=== PATIENT | female | born 1950 | race Asian ===

== ENCOUNTER 2016-12-28 07:56 | Outpatient (CLI) | payer BC, OTHER | END 2016-12-28 07:57 | disposition home or self-care (01) | DX: K76.0 Fatty (change of) liver, not elsewhere classified (principal); R74.8 Abnormal levels of other serum enzymes ==

== ENCOUNTER 2017-06-27 08:13 | Outpatient (CLI) | payer OTHER ==
--- NOTE | 2017-06-27 11:36 | DEXA Report ---
DEXA SCAN: 06/27/2017 CLINICAL INDICATION: Postmenopausal. TECHNIQUE: Dual energy x-ray absorptiometry (DXA) was performed on a [employer] system. Regions measured are the AP spine, femoral neck, and, if needed, forearm. COMPARISON: None. In accordance with the International Society for Clinical Densitometry (ISCD) guidelines, data from previous exams may be reanalyzed using current recommendations and techniques. This is done to allow a more accurate basis for comparison with the current study. FINDINGS: The data for the lumbar spine is as follows: REGION BMD (g/cm/cm) T-SCORE Z-SCORE L1 1.189 0.5 1.3 L2 1.179 -0.2 0.6 L3 1.161 -0.3 0.4 L4 1.134 -0.6 0.2 TOTAL 1.163 -0.1 0.6 NOTE: All evaluable vertebrae are used for classification. The data for the hip is as follows: REGION BMD (g/cm/cm) T-SCORE Z-SCORE Neck 0.973 -0.5 0.5 TOTAL 1.115 0.8 1.5 NOTE: The femoral neck or total proximal femur, whichever is lowest, is used for classification. IMPRESSION: THE WHO CLASSIFICATION BASED ON THE INTERNATIONAL REFERENCE STANDARD IS NORMAL. THE FRACTURE RISK IS NOT INCREASED. RECOMMENDATION: Patients with diagnosis of osteoporosis or osteopenia should have regular bone mineral density assessment. For those eligible for Medicare, routine testing is allowed once every 2 years. Testing frequency can be increased for patients who have rapidly progressing disease or for those who are receiving medical therapy to restore bone mass. COMMENT: World Health Organization (WHO) definitions for osteoporosis and osteopenia: NORMAL BMD: T-score at -1.0 or higher, fracture risk is low. OSTEOPENIA BMD: T-score between -1.0 and -2.5, fracture risk is increased. OSTEOPOROSIS BMD: T-score at -2.5 or lower, fracture risk high. National Osteoporosis Foundation recommends: 1. Obtain adequate dietary calcium (at least 1200 mg per day) and vitamin D (400 -800 international units per day). 2. Participate, as appropriate, in regular weightbearing and muscle- strengthening exercise. 3. Avoid tobacco use and reduce alcohol and caffeine intake. 4. For more detailed information see the website at www.NOF.org. MTDD
== END 2017-06-27 08:14 | disposition home or self-care (01) ==
LOC: DI 08:13
PROVIDERS: ATTEND Physician Assistant Medical
DX: M89.9 Disorder of bone, unspecified (principal)
CPT/HCPCS: 77080

== ENCOUNTER 2018-08-14 21:06 | Outpatient (CLI) | payer BC ==
--- NOTE | 2018-08-14 22:05 | Ultrasound Report ---
Reason: LEG PAIN,RIGHT Procedure Date: 08/14/2018 Accession Number: [id number] / [id number] Procedure: US - Duplex Ext Veins Right CPT Code: FULL RESULT: EXAM: RIGHT LOWER EXTREMITY VENOUS ULTRASOUND EXAM DATE: 08/14/2018 09:43 PM. CLINICAL HISTORY: LEG PAIN,RIGHT. COMPARISON: None. TECHNIQUE: Real-time sonographic vascular imaging was performed by the bag worker through the lower extremity utilizing both color-flow and Doppler spectral analysis. Multiple claim representative static images were saved for review. FINDINGS: Common Femoral Vein (CFV): Normal. CFV-GSV Junction: Normal. Profunda Femoral Vein (PFV): Normal. Femoral Vein (FV) Prox: Normal. Femoral Vein (FV) Mid: Normal. Femoral Vein (FV) Dist: Normal. Popliteal Vein: Normal. Posterior Tibial Veins: Normal. Peroneal Veins: Normal. Contralateral Side CFV: Normal. Other: None. IMPRESSION: No evidence for deep venous thrombosis. RADIA
== END 2018-08-14 21:07 | disposition home or self-care (01) ==
LOC: DI 21:06
PROVIDERS: ATTEND Family Medicine
DX: M79.604 Pain in right leg (principal)

== ENCOUNTER 2019-08-15 08:48 | Outpatient (CLI) | payer BC ==
--- NOTE | 2019-08-16 12:12 | Ultrasound Report ---
Reason: ELEVATED LFTS Procedure Date: 08/15/2019 Accession Number: [id number] / [id number] Procedure: US - Abdomen Limited CPT Code: FULL RESULT: EXAM: ABDOMEN ULTRASOUND LIMITED, RUQ EXAM DATE: 08/15/2019 09:48 AM. CLINICAL HISTORY: ELEVATED LFTS. COMPARISON: 12/28/2016. TECHNIQUE: Real-time scanning was performed with static images obtained. FINDINGS: Limited by patient scanning characteristics. Liver: Increased both in size and echotexture. 20 cm. Main portal vein flow: Hepatopetal. Gallbladder: Status post cholecystectomy. Biliary System: CBD measures 5 mm. No intrahepatic or extrahepatic ductal dilatation. Free fluid: None. Right kidney: 11.7 cm. IMPRESSION: 1. Hepatomegaly with fatty infiltration of the liver. 2. Status post cholecystectomy. RADIA
== END 2019-08-15 08:49 | disposition home or self-care (01) ==
LOC: DI 08:48
PROVIDERS: ATTEND Internal Medicine
DX: K76.0 Fatty (change of) liver, not elsewhere classified (principal); Z90.49 Acquired absence of other specified parts of digestive tract
CPT/HCPCS: 76705

== ENCOUNTER 2023-05-15 08:00 | Outpatient (CLI) | payer OTHER ==
--- NOTE | 2023-05-15 12:20 | Ultrasound Report ---
LIMITED ULTRASOUND OF RIGHT BREAST: 05/15/2023 CLINICAL: Occasional right breast pain. Comparison is made to exams dated: 05/15/2023 mammogram, 04/20/2015 mammogram, and 08/02/2011 mammogram - [facility]. Color flow and real-time ultrasound of the right breast 5-7 o'clock region were performed. Mcneal scal e images of the real-time examination were reviewed. No significant abnormalities were seen sonographically in the right breast in the region of pain. IMPRESSION: NEGATIVE There is no sonographic evidence of malignancy. No mass in the region of focal pain in the right breast. Exam findings were conveyed to the patient. Exam findings were discussed with the patient. Patient is advised to monitor for significant change. A 1 year screening mammogram is recommended. This exam was interpreted at Station ID: [id number]. Electronically Signed By: Errol Concepcion M.D. slc/:05/15/2023 09:59:10 Ultrasound BI-RADS: 1 Negative BI-RADS CATEGORY: (1) - 1 Mammogram [id number] 1 year screening LATERALITY: (B)
--- NOTE | 2023-05-15 12:20 | Mammography Report ---
BILATERAL DIGITAL DIAGNOSTIC MAMMOGRAM 3D/2D: 05/15/2023 CLINICAL: Intermittent pain in right breast. Due for bilateral imaging. Comparison is made to exams dated: 04/20/2015 mammogram and 08/02/2011 mammogram - [facility]. There are scattered areas of fibroglandular density in both breasts (category b / 25%-50% glandular t issue). No significant masses, calcifications, or other findings are seen in either breast. No mass in the region of focal pain in the right breast. IMPRESSION: INCOMPLETE: NEEDS ADDITIONAL IMAGING EVALUATION No mass in the region of focal pain in the right breast. A targeted ultrasound is recommended and will immediately follow. Based on the Tyrer Cuzick model (a risk assessment model) the patients lifetime risk is 4.2% and her 10 year risk is 2.9%. According to the ACR, ACS, and NCCN guidelines, an annual breast MRI exam opal g with mammogram is recommended if the patients lifetime risk is 20% or greater. This exam was interpreted at Station ID: [id number]. NOTE: For mammograms, a report in lay terms will be sent to the patient. Approximately 15% of breast malignancies will not be visualized mammographically. In the management of a palpable breast mass, a negative mammogram must not discourage biopsy of a clinically suspicious lesion. Electronically Signed By: Errol Concepcion M.D. slc/:05/15/2023 09:57:48 ACR BI-RADS Category 0: Incomplete 3340F PARENCHYMAL PATTERN: (A) - The breast(s) demonstrate(s) scattered fibroglandular densities. BI-RADS CATEGORY: (0) - 0 Ultrasound [id number] Immediate follow-up LATERALITY: (B)
== END 2023-05-15 08:01 | disposition home or self-care (01) ==
LOC: DI 08:00
PROVIDERS: ATTEND Internal Medicine
DX: N64.4 Mastodynia (principal)

== ENCOUNTER 2023-11-05 12:30 | Outpatient (CLI) | payer OTHER ==
--- NOTE | 2023-11-05 16:31 | XRAY Report ---
PROCEDURE: Hand 3 View LT INDICATIONS: ARTHRALGIA TECHNIQUE: 3 views of the hand(s) acquired. COMPARISON: None. FINDINGS: Bones: No fractures or dislocations. Moderate degenerative changes at the first CMC joint. Mild to moderate degenerative changes at the interphalangeal joints. No suspicious bony lesions. Soft tissues: No suspicious soft tissue calcifications or masses. 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 Reviewed by: Errol Concepcion MD on 11/05/2023 4:29 PM PST Approved by: Errol Concepcion MD on 11/05/2023 4:29 PM PST Station ID: [id number]
== END 2023-11-05 12:31 | disposition home or self-care (01) ==
LOC: DI 12:30
PROVIDERS: ATTEND Internal Medicine
DX: M19.042 Primary osteoarthritis, left hand (principal)

== ENCOUNTER 2024-07-16 09:37 | Outpatient (CLI) | payer OTHER ==
--- NOTE | 2024-07-19 08:28 | Ultrasound Report ---
LIMITED ULTRASOUND OF RIGHT BREAST: 07/16/2024 CLINICAL: Focal right breast pain. Comparison is made to exams dated: 07/16/2024 mammogram, 05/15/2023 ultrasound, 05/15/2023 mammogram, a nd 04/20/2015 mammogram - [facility]. Color flow ultrasound of the right breast 12-5 o'clock, and retroareolar regions was performed. Mcneal scale images of the real-time examination were reviewed. No significant abnormalities were seen sonographically in the right breast. IMPRESSION: NEGATIVE There is no sonographic evidence of malignancy. There is no abnormality seen in the right breast to correspond with the palpable abnormality and pain , however, clinical followup is recommended. A 1 year screening mammogram is recommended. This exam was interpreted at Station ID: [id number]. Electronically Signed By: Feliciano vegas/kassie:07/16/2024 20:40:25 letter sent: No_Letter Ultrasound BI-RADS: 1 Negative BI-RADS CATEGORY: (1) - 1 RECOMMENDATION: (ANNUAL) - Recommend routine annual screening mammography. [id number] 1 year screening LATERALITY: (B)
--- NOTE | 2024-07-19 08:28 | Mammography Report ---
BILATERAL DIGITAL DIAGNOSTIC MAMMOGRAM 3D/2D: 07/16/2024 CLINICAL: Palpable right breast lump by physician. Focal right breast pain. Due for bilateral exam. Comparison is made to exams dated: 05/15/2023 mammogram, 04/20/2015 mammogram, and 05/15/2023 ultrasoun d - [facility]. There are scattered areas of fibroglandular density in both breasts (category b / 25%-50% glandular t issue). No significant masses, calcifications, or other findings are seen in either breast. IMPRESSION: INCOMPLETE: NEEDS ADDITIONAL IMAGING EVALUATION There is no abnormality seen in the right breast to correspond with the palpable abnormality and pain , however, ultrasound is recommended. Based on the Tyrer Cuzick model (a risk assessment model) the patient's lifetime risk is 3.9% and her 10 year risk is 2.9%. According to the ACR, ACS, and NCCN guidelines, an annual breast MRI exam opal g with mammogram is recommended if the patient's lifetime risk is 20% or greater. This exam was interpreted at Station ID: [id number]. NOTE: For mammograms, a report in lay terms will be sent to the patient. Approximately 15% of breast malignancies will not be visualized mammographically. In the management of a palpable breast mass, a negative mammogram must not discourage biopsy of a clinically suspicious lesion. Electronically Signed By: Feliciano vegas/kassie:07/16/2024 20:38:57 ACR BI-RADS Category 0: Incomplete 3340F PARENCHYMAL PATTERN: (A) - The breast(s) demonstrate(s) scattered fibroglandular densities. BI-RADS CATEGORY: (0) - 0 Ultrasound [id number] Immediate follow-up LATERALITY: (R)
== END 2024-07-16 09:38 | disposition home or self-care (01) ==
LOC: DI 09:37
PROVIDERS: ATTEND Internal Medicine
DX: N63.12 Unspecified lump in the right breast, upper inner quadrant (principal)